=== PATIENT | female | born 1950 | race Caucasian/White ===

== ENCOUNTER → 2019-12-08 09:15 | Outpatient (CLI) | payer MEDICARE, SELFPAY ==
--- NOTE | ~2019-12-08 | MM_ITS ---
EXAMINATION: MM diagnostic shayne LT w marian HISTORY: Follow-up left breast asymmetries TECHNIQUE: Additional 3-D tomosynthesis images of the left breast were performed and synthetic 2-D im ages were generated. CAD analysis was submitted and interpreted. COMPARISON: Comparison to multiple prior studies sequentially, with oldest reviewed study dated 04/05. BREAST PARENCHYMAL COMPOSITION: Breast composed of scattered areas of fibroglandular density FINDINGS: There are no new suspicious masses, calcifications or architectural distortion to suggest m alignancy. Left breast asymmetries and calcifications are stable. IMPRESSION: 1. No mammographic evidence for malignancy in the left breast. 2. Routine yearly screening mammogram and regular clinical breast examination are recommended. BI-RADS Category 2: Benign finding(s). Reviewed, dictated and finalized at location A. IMPRESSION: 1. No mammographic evidence for malignancy in the left breast. 2. Routine yearly screening mammogram and regular clinical breast examination a re recommended. BI-RADS Category 2: Benign finding(s).
== END ==
PROVIDERS: Visit Provider Obstetrics & Gynecology Gynecology
DX: R92.8 Other abnormal and inconclusive findings on diagnostic imaging of breast (principal)
CPT/HCPCS: 77061; 77065; G0279

== ENCOUNTER → 2020-06-17 17:32 | Outpatient (CLI) | payer MEDICARE, SELFPAY ==
--- NOTE | ~2020-06-17 | DEXA_ITS ---
Bone Density Report Name: Jose Bowers Age: 69 Sex: Female Ethnicity: White Date of : 1950 Indication: postmenopausal; screening for osteoporosis; history of glucocorticoids; rheumatoid arthritis; Referring Provider: KARY ZHANG Study: Bone densitometry was performed. Exam Date: June 17, 2020 Accession number: [id number] Bone Density: Region BMD T-score Z-score Classification AP Spine (L1-L4) 1.224 1.6 3.7 Normal Femoral Neck (Left) 0.944 0.9 2.7 Normal Total Hip (Left) 1.157 1.8 3.3 Normal Femoral Neck (Right) 0.819 -0.3 1.5 Normal Total Hip (Right) 1.105 1.3 2.9 Normal Total Hip Mean 1.131 1.6 3.1 Normal World Health Organization criteria for BMD impression classify patients as: Normal (T-score at or above -1.0), Osteopenia (T-score between -1.0 and -2.5), or Osteoporosis (T-score at or below -2.5). 10-year Fracture Risk: FRAX not reported because: All T-scores for Spine Total, Hip Total, Femoral Neck at or above -1.0 Previous Exams: Region Exam Age BMD T-score BMD Change BMD Change Date g/cm2 vs Baseline vs Previous AP Spine(L1-L4) 06/17/2020 69 1.224 1.6 0.023* -0.008 04/16/2017 66 1.233 1.7 0.032* 0.032* 03/26/2014 63 1.201 1.4 Total Hip(Left) 06/17/2020 69 1.157 1.8 -0.072* 0.000 04/16/2017 66 1.157 1.8 -0.073* -0.073* 03/26/2014 63 1.229 2.4 Total Hip(Right) 06/17/2020 69 1.105 1.3 0.010 -0.026 04/16/2017 66 1.131 1.5 0.036* 0.036* 03/26/2014 63 1.095 1.3 *Denotes significance at 95% confidence level, LSC for AP Spine = 0.022 g/cm2, LSC for Total Hip = 0.027 g/cm2 Clinical Information Provided by Patient: Has taken Glucocorticoids Has rheumatoid arthritis Has used the following medications: Vitamin D, Calcium, SYNTHROID, MTV Patient maximum height was 61.0 Menopause Age: 54 No regular weight bearing exercise Drinks caffeinated beverages Onset of menses at age 11 Number of children 1 Impression: The patient has normal bone mass. The patient has risk factors, including: history of glucocorticoid therapy. No significant bone loss was observed. Discussion: BONE DENSITY IS ABOVE THE MINIMUM DESIRABLE LEVEL AT ALL SKELETAL SITES TESTED. This patient?s bone mineral density is above the minimum desirable level (T-score -1.0 or better) at all sites measured.
--- NOTE | ~2020-06-17 | MM_ITS ---
EXAMINATION: MM screening shayne BI w marian HISTORY: Screening mammogram TECHNIQUE: Craniocaudal and mediolateral oblique 3-D tomosynthesis images were obtained and synthetic 2-D images were generated. CAD analysis was submitted and interpreted. COMPARISON: 12/2019 diagnostic left digital mammogram 05/19/2019 screening right mammogram 04/06/2019 diagnostic left mammogram 10/2018, 05/24/2018 diagnostic left digital mammogram and limited left breast ultrasound 04/30/2018, 04/16/2017 bilateral digital screening mammogram examinations BREAST PARENCHYMAL COMPOSITION: There are scattered areas of fibroglandular density. FINDINGS: Scattered bilateral benign calcifications. There is no evidence of suspicious mass, calcifi cation, or architectural distortion to suggest malignancy in either breast. There has been no suspici ous interval change. IMPRESSION: 1. No mammographic evidence of malignancy. 2. Recommend routine screening mammography in one year. BI-RADS Category 2: Benign finding(s). Reviewed, dictated and finalized at location A. 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
== END ==
PROVIDERS: Visit Provider Obstetrics & Gynecology Gynecology
DX: Z12.31 Encounter for screening mammogram for malignant neoplasm of breast (principal); Z78.0 Asymptomatic menopausal state
CPT/HCPCS: 77063; 77067; 77080

== ENCOUNTER 2021-02-27 01:02 | Day surgery (SDC) | payer MEDICARE, SELFPAY ==
[2021-02-24 08:45] VITALS: BMI 44.9
[2021-02-27 06:21] VITALS: BP 151/55; PULSE 53; RESP 16; TEMP 36.2; O2SAT 99
--- NOTE | 2021-02-27 06:46 | WPDANESEPPF ---
Anes - Initial Pre Proc Eval Procedure: Operation Date: 02/27/21 07:30 Proposed Procedures p Hysteroscopy Dilation and Curettage - Raissa Berger MD Date/Time: 02/27/21 06:46 Surgeon: Raissa Berger MD Pre Op Diagnosis: Post Menopausal Bleeding Patient Data Age: 70 Gender: F Height: 1.52 m Weight: 104.33 kg Allergies Allergy/AdvReac Type Severity Reaction Status Date / Time terbinafine [From Lamisil] Allergy Intermediate Hives Verified 02/27/21 06:31 amoxicillin Allergy Mild Rash Verified 02/27/21 06:31 clarithromycin Allergy Mild Rash Verified 02/27/21 06:31 Sulfa (Sulfonamide Allergy Mild Weakness Verified 02/27/21 06:31 Antibiotics) Home Medications Medication Instructions Recorded Confirmed Type acyclovir 400 mg PO BID 02/24/21 02/27/21 History ascorbic acid (vitamin C) [Vitamin 500 mg PO DAILY 02/24/21 02/24/21 History C] atenolol 50 mg PO BID 02/24/21 02/27/21 History atorvastatin 40 mg PO HS 02/24/21 02/27/21 History betamethasone valerate 1 applic TOPICAL DAILY 02/24/21 02/27/21 History calcium 1,200 mg PO DAILY 02/24/21 02/27/21 History cholecalciferol (vitamin D3) 25 mcg PO DAILY 02/24/21 02/27/21 History [Vitamin D3] conjugated estrogens [Premarin] 0.625 mg VAGINAL DAILY 02/24/21 02/27/21 History esomeprazole magnesium [Nexium] 20 mg PO DAILY 02/24/21 02/27/21 History furosemide 20 mg PO DAILY 02/24/21 02/27/21 History golimumab [Simponi ARIA] See Rx Instructions .ROUTE .COMPLEX 02/24/21 02/27/21 History hydrochlorothiazide 25 mg PO DAILY 02/24/21 02/27/21 History levothyroxine [Synthroid] 125 mcg PO DAILY 02/24/21 02/27/21 History losartan 100 mg PO DAILY 02/24/21 02/27/21 History mv,Ca,min-folic acid-vit K1 1 tablet PO DAILY 02/24/21 02/27/21 History [One-A-Day Women's 50 Plus] potassium chloride 20 meq PO DAILY 02/24/21 02/27/21 History prednisone 2.5 mg PO EVERY OTHER DAY 02/24/21 02/27/21 History spironolactone 50 mg PO DAILY 02/24/21 02/27/21 History vitamin [id number]-[id number] acid 1 tablet PO DAILY 02/24/21 02/27/21 History vitamin E 400 unit PO DAILY 02/24/21 02/27/21 History Patient hx anesthesia problems: none Family hx anesthesia problems: none Results Review: All pre-operative results and documents have been reviewed as part of the pre-operative evaluation. [facility] Past Medical History Medical History (Updated 02/27/21 @ 06:47 by Mario Cartagena MD) HTN (hypertension) Morbid obesity MARÍA (obstructive sleep apnea) Social History Social History Smoking packs per day: 1 Smoking cigarettes per day: 20.0 Years smoked: 12 Smoking pack-years: 12.00 Smoking status: Former smoker Tobacco type: cigarettes Smoking end date: 05/06/80 Alcohol intake: never Substance use: never Substance use type: does not use Living arrangements: with family Spiritual care concerns: No Anes - Eval Final PreProcedure Day of Procedure 02/27/21 06:46 Patient weight: morbidly obese Heart: regular rate and rhythm Lungs: clear to auscultation Airway: Mallampati scale class II Neurological: alert and oriented Last oral intake: >/= 8 hours ASA classification: III Emergent: no Anesthetic plan: proceed Anesthesia type and monitoring: general GIVS and standard monitoring Results Review: All pre-operative results and documents have been reviewed as part of the pre-operative evaluation. Informed Consent: The patient's anesthetic plan and its attendant risks and benefits were discussed with the patient/family/POA. Questions were solicited and answers provided to the satisfaction of the patient/family/POA.
[2021-02-27] MEDS: LACTATED RINGERS 1,000 ML 30 ML IV CONT (06:47)
[2021-02-27] MEDS: ACETAMINOPHEN 500 MG TABLET 1000 MG PO (06:49)
--- NOTE | 2021-02-27 07:17 | PM.HPGS ---
History of Present Illness History of Present Illness Consent: Risks, benefits, and alternatives have been discussed and questions answered. Patient agrees to proceed with procedure. Chief complaint: Post Menopausal Bleeding Narrative: Jose Bowers is a 70 year old female with episode of postmenopausal bleeding. Reviewed and recommend work up with hysteroscopy and D&C. Risks of infection, bleeding, perforation, and possible pathology discussed. Agrees to proceed. Review of Systems Review of Systems: not repeated day of surgery; patient states no changes in status Musculoskeletal: Musculoskeletal: Reports back pain and Reports arthralgias [facility] Past Medical History Medical History (Updated 02/27/21 @ 07:22 by Raissa Berger MD) Hearing loss HTN (hypertension) Morbid obesity MARÍA (obstructive sleep apnea) Rheumatoid arthritis Surgical History Surgical History (Updated 02/27/21 @ 07:21 by Raissa Berger MD) S/P arthroscopic knee surgery S/P carpal tunnel release S/P LEEP S/P tonsillectomy S/P tubal ligation Social History Social History Smoking packs per day: 1 Smoking cigarettes per day: 20.0 Years smoked: 12 Smoking pack-years: 12.00 Smoking status: Former smoker Tobacco type: cigarettes Smoking end date: 05/06/80 Alcohol intake: never Substance use: never Substance use type: does not use Living arrangements: with family Spiritual care concerns: No Meds Home Medications and Allergies Home Medications Medication Instructions Recorded Confirmed Type acyclovir 400 mg PO BID 02/24/21 02/27/21 History ascorbic acid (vitamin C) [Vitamin 500 mg PO DAILY 02/24/21 02/24/21 History C] atenolol 50 mg PO BID 02/24/21 02/27/21 History atorvastatin 40 mg PO HS 02/24/21 02/27/21 History betamethasone valerate 1 applic TOPICAL DAILY 02/24/21 02/27/21 History calcium 1,200 mg PO DAILY 02/24/21 02/27/21 History cholecalciferol (vitamin D3) 25 mcg PO DAILY 02/24/21 02/27/21 History [Vitamin D3] conjugated estrogens [Premarin] 0.625 mg VAGINAL DAILY 02/24/21 02/27/21 History esomeprazole magnesium [Nexium] 20 mg PO DAILY 02/24/21 02/27/21 History furosemide 20 mg PO DAILY 02/24/21 02/27/21 History golimumab [Simponi ARIA] See Rx Instructions .ROUTE .COMPLEX 02/24/21 02/27/21 History hydrochlorothiazide 25 mg PO DAILY 02/24/21 02/27/21 History levothyroxine [Synthroid] 125 mcg PO DAILY 02/24/21 02/27/21 History losartan 100 mg PO DAILY 02/24/21 02/27/21 History mv,Ca,min-folic acid-vit K1 1 tablet PO DAILY 02/24/21 02/27/21 History [One-A-Day Women's 50 Plus] potassium chloride 20 meq PO DAILY 02/24/21 02/27/21 History prednisone 2.5 mg PO EVERY OTHER DAY 02/24/21 02/27/21 History spironolactone 50 mg PO DAILY 02/24/21 02/27/21 History vitamin [id number] acid 1 tablet PO DAILY 02/24/21 02/27/21 History vitamin E 400 unit PO DAILY 02/24/21 02/27/21 History Allergies Allergy/AdvReac Type Severity Reaction Status Date / Time terbinafine [From Lamisil] Allergy Intermediate Hives Verified 02/27/21 06:31 amoxicillin Allergy Mild Rash Verified 02/27/21 06:31 clarithromycin Allergy Mild Rash Verified 02/27/21 06:31 Sulfa (Sulfonamide Allergy Mild Weakness Verified 02/27/21 06:31 Antibiotics) Vital Signs Vital Signs - 24 hr 02/27/21 06:21 Temperature 97.2 F L Pulse Rate 53 L Respiratory Rate 16 Blood Pressure 151/55 H Pulse Oximetry 99 Exam Const: General: comfortable and no acute distress Nutritional Appearance: obese Resp: Effort & Inspection: normal respiratory effort GI: Inspection: normal to inspection GI Palp: No abdominal tenderness : External Female Exam: normal external appearance Speculum Exam - Vagina: vaginal bleeding Speculum Exam - Cervix: normal appearance of the cervix Bimanual exam- vagina & uterus: normal bimanual exam Assessment and Plan Assessment and plan (1) Post-menopa
[2021-02-27 07:22] LABS: Anion Gap 11 mmol/L (8-16); Blood Urea Nitrogen 27 mg/dL (7-17); Calcium 9.5 mg/dL (8.4-10.2); Carbon Dioxide 27 mmol/L (22-30); Chloride 103 mmol/L (98-107); Estimated CRCL calculation 61 ml/min; Estimated Glomerular Filt Rate > 60; Glucose 104 mg/dL (65-110); Potassium 3.8 mmol/L (3.4-5.0); Sodium 141 mmol/L (137-145)
--- NOTE | 2021-02-27 07:23 | WPDHPUPDATE1 ---
History and Physical Update Update Date/Time: 02/27/21 07:23 History and Physical has been reviewed, including an updated exam of the patient. There are NO changes in the patient's condition. Risks, benefits, and alternatives have been discussed and questions answered. Patient agrees to proceed with procedure.
[2021-02-27] MEDS: LIDOCAINE HCL 1% PF 30 ML VIAL INFILTRATE (07:41)
[2021-02-27 07:58] VITALS: BP 113/43; PULSE 55; RESP 18; O2SAT 96
--- NOTE | 2021-02-27 08:02 | P.OP_ITS ---
Procedure Note - Detailed Date of Procedure 02/27/21 Pre-op Diagnosis Post Menopausal Bleeding Post-op Diagnosis same Procedure Performed D&C hysteroscopy Surgeon Raissa Berger MD Anesthesia MAC and local Findings External os and internal os are very stenotic; uterus is grossly atrophic with no lesions Description of Procedure The patient is taken to the operating room and placed under anesthesia in the dorsal lithotomy position. She is prepped and draped in the usual sterile fashion. [place] speculum was placed in the vagina and the cervix grasped on the anterior lip with a tenaculum. The cervix was injected with each quadrant with 1% lidocaine. The external os is noted to be flush with no opening. Attempt to sound or use the small dilator was not successful. Os Finders were used and again unable to enter. The 11 blade scalpel was used to angélica-cross the visible os. The os Finders were then used and the cervix serially dilated with difficulty. The internal os was also stenotic. The diagnostic hysteroscope was then placed with no abnormalities noted. The medium sharp curette is used to sharply curette the endometrium until a good uterine cry was noted in all areas. Minimal material was obtained consistent with the atrophic appearance. Instruments are removed. Patient is awakened from anesthesia and taken to recovery in stable condition. Sponge, needle, and instrument counts are correct per the OR staff. Estimated Blood Loss 5 Drains No Packing No Pathology yes (Endometrial curettings) Complications No immediate complications Condition stable Disposition PACU
[2021-02-27 08:15] VITALS: BP 120/49; PULSE 55; RESP 18; O2SAT 98
[2021-02-27 08:40] VITALS: BP 130/55; PULSE 52; RESP 16
[2021-02-27 08:45] VITALS: BP 130/55; PULSE 52; RESP 16
== END 2021-02-27 09:00 | disposition home or self-care (01) ==
PROVIDERS: Anesthesiology; PCP Internal Medicine; Visit Provider Obstetrics & Gynecology Gynecology
PROC: 0U5B8ZZ Destruction of Endometrium, Via Natural or Artificial Opening Endoscopic (ICD-10-PCS; CPT 58563; principal; 2021-02-27 07:30)
DX: N95.0 Postmenopausal bleeding (principal); N85.8 Other specified noninflammatory disorders of uterus; I10 Essential (primary) hypertension; G47.33 Obstructive sleep apnea (adult) (pediatric); E66.01 Morbid (severe) obesity due to excess calories; Z68.41 Body mass index [BMI] 40.0-44.9, adult; Z87.891 Personal history of nicotine dependence
CPT/HCPCS: 58558; 36415; 80048; 88305; A9270; J2704; J3010; J7030; J7120

== ENCOUNTER 2021-03-15 17:41 | Emergency (ER) | payer MEDICARE, SELFPAY ==
--- NOTE | ~2021-03-15 | XR_ITS ---
EXAMINATION: XR knee RT min 4V EXAM DATE: 03/15/2021 18:07 INDICATION: STrain Injury X 3 Wks Ago, pain Lateral Side Of Knee. TECHNIQUE: Right knee frontal, crosstable lateral, orthogonal oblique projections for interpretation . There is no prior study for comparison. FINDINGS: No evidence osteochondral defect or joint body in the right knee joint. Suprapatellar enth esopathy. No joint effusion. There is mild primary osteoarthritis. There are no acute fractures or di slocations identified. There is no subcutaneous gas. The soft tissue is unremarkable. There are n o radiopaque foreign bodies. IMPRESSION: Mild right knee tricompartmental osteoarthritis. Reviewed, dictated and finalized at location A. 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
[2021-03-15 17:43] VITALS: BP 136/54; PULSE 100; RESP 18; TEMP 36.3; O2SAT 100
--- NOTE | 2021-03-15 19:08 | ED.LOWEXIN ---
HPI - Extremity Injury (Lower) General Chief Complaint: Extremity Injury, Lower Stated Complaint: RIGHT KNEE PAIN Time Seen by Provider: 03/15/21 17:57 Source: patient Mode of arrival: ambulatory Limitations: no limitations History of Present Illness HPI Narrative: This is a 70 year old female that presents to the ER for right knee pain present over the last couple of weeks. No known injury or trauma. Reports the pain is worse with weight bearing. She has been taking anti-inflammatories for pain with some relief. Reports the pain is on the lateral and posterior aspect of her knee. Denies decreased ROM or numbness. Related Data Home Medications Medication Instructions Recorded Confirmed acyclovir 400 mg PO BID 02/24/21 02/27/21 ascorbic acid (vitamin C) [Vitamin 500 mg PO DAILY 02/24/21 02/24/21 C] atenolol 50 mg PO BID 02/24/21 02/27/21 atorvastatin 40 mg PO HS 02/24/21 02/27/21 betamethasone valerate 1 applic TOPICAL DAILY 02/24/21 02/27/21 calcium 1,200 mg PO DAILY 02/24/21 02/27/21 cholecalciferol (vitamin D3) 25 mcg PO DAILY 02/24/21 02/27/21 [Vitamin D3] conjugated estrogens [Premarin] 0.625 mg VAGINAL DAILY 02/24/21 02/27/21 esomeprazole magnesium [Nexium] 20 mg PO DAILY 02/24/21 02/27/21 furosemide 20 mg PO DAILY 02/24/21 02/27/21 golimumab [Simponi ARIA] See Rx Instructions .ROUTE .COMPLEX 02/24/21 02/27/21 hydrochlorothiazide 25 mg PO DAILY 02/24/21 02/27/21 levothyroxine [Synthroid] 125 mcg PO DAILY 02/24/21 02/27/21 losartan 100 mg PO DAILY 02/24/21 02/27/21 mv,Ca,min-folic acid-vit K1 1 tablet PO DAILY 02/24/21 02/27/21 [One-A-Day Women's 50 Plus] potassium chloride 20 meq PO DAILY 02/24/21 02/27/21 prednisone 2.5 mg PO EVERY OTHER DAY 02/24/21 02/27/21 spironolactone 50 mg PO DAILY 02/24/21 02/27/21 vitamin J65-[id number] acid 1 tablet PO DAILY 02/24/21 02/27/21 vitamin E 400 unit PO DAILY 02/24/21 02/27/21 Allergies Allergy/AdvReac Type Severity Reaction Status Date / Time terbinafine [From Lamisil] Allergy Intermediate Hives Verified 03/15/21 20:20 amoxicillin Allergy Mild Rash Verified 03/15/21 20:20 clarithromycin Allergy Mild Rash Verified 03/15/21 20:20 Sulfa (Sulfonamide Allergy Mild Weakness Verified 03/15/21 20:20 Antibiotics) fluconazole [From Diflucan] Allergy Rash Verified 03/15/21 20:20 Review of Systems Review of Systems: CONSTITUTIONAL: Denies fever CARDIOVASCULAR: Denies chest pain RESPIRATORY: Denies dyspnea. SKIN: Denies rash MUSCULOSKELETAL: Reports joint pain, and myalgia. NEUROLOGIC: Denies numbness All systems reviewed & are unremarkable except as noted in HPI and below PMFSH Past Medical History Medical History (Updated 03/15/21 @ 20:45 by Emily Myles PA-C) Hearing loss HTN (hypertension) Morbid obesity MARÍA (obstructive sleep apnea) Rheumatoid arthritis Surgical History Surgical History (Updated 02/27/21 @ 07:21 by Raissa Berger MD) S/P arthroscopic knee surgery S/P carpal tunnel release S/P LEEP S/P tonsillectomy S/P tubal ligation Social History Social History Smoking packs per day: 1 Smoking cigarettes per day: 20.0 Years smoked: 12 Smoking pack-years: 12.00 Smoking status: Former smoker Tobacco type: cigarettes Smoking end date: 05/06/80 Alcohol intake: never Substance use: never Substance use type: does not use Spiritual care concerns: No Exam Narrative: GENERAL: Well-appearing, well-nourished, and in no acute distress. HEAD: Normocephalic, atraumatic. EYES: EOMI. CHEST: No respiratory distress. HEART: Regular rate EXTREMITIES: Normal range of motion. 1+ pitting edema to the bilateral lower extremities. No erythema. Normal DP pulses. Normal sensation SKIN: Warm, dry, no rash. NEURO: No focal deficits. Alert and oriented x3. PSYCH: Normal mood and affect Course Vital Signs Vital signs: Vital Signs Temperature 97.4 F L 03/15/21 17:43 Pulse Rate
[2021-03-15 19:10] LABS: Basophils Absolute Auto 0.1 K/mm3 (0.0-0.1); Basophils Percent Auto 0.5 % (0.2-1.2); Eosinophils Absolute Auto 0.2 K/mm3 (0-0.3); Eosinophils Percent Auto 1.6 % (0-4.4); Hematocrit 38.9 % (37.0-47.0); Immature Granulocyte Absolute 0.04 K/mm3 (0.00-0.031); Immature Granulocyte Percent A 0.4 % (0-0.5); Lymphocytes Absolute Auto 2.54 K/mm3 (0.9-3.2); Lymphocytes Percent Auto 25.5 % (18.3-44.2); Mean Corpuscular HGB Conc 33.4 g/dl (32-36); Mean Corpuscular Volume 95.8 fl (80-100); Mean Platelet Volume 10.5 fl (7.4-10.4); Monocytes Absolute Auto 0.8 K/mm3 (0.1-0.6); Monocytes Percent Auto 8.4 % (2.6-8.5); Neutrophils Absolute Auto 6.3 K/mm3 (1.3-6.7); Neutrophils Percent Auto 63.6 % (45.5-73.1); Platelet Count Result 182 k/mm3 (150-375); Red Blood Count 4.06 M/mm3 (4.2-5.4); Red Cell Distribution Width 13.4 % (11.5-14.5)
[2021-03-15 19:24] LABS: Anion Gap 9 mmol/L (8-16); Blood Urea Nitrogen 28 mg/dL (7-17); CRP < 0.5 mg/dL (<1.0); Calcium 9.5 mg/dL (8.4-10.2); Carbon Dioxide 24 mmol/L (22-30); Chloride 105 mmol/L (98-107); Estimated CRCL calculation 50 ml/min; Estimated Glomerular Filt Rate 49; Glucose 112 mg/dL (65-110); Potassium 4.3 mmol/L (3.4-5.0); Sodium 138 mmol/L (137-145)
[2021-03-15 19:31] LABS: D Dimer 0.31 ug/mL (<0.48)
[2021-03-15 19:49] LABS: Erythrocyte Sedimentation Rate 19 mm/hr (0-20)
[2021-03-15 19:53] LABS: Platelet Estimate Adequate (Adequate)
[2021-03-15 20:16] VITALS: BP 150/56; PULSE 52; RESP 18; O2SAT 99
[2021-03-15] MEDS: ACETAMINOPHEN 500 MG TABLET 1000 MG PO (20:20)
[2021-03-15 21:46] VITALS: BP 134/47; PULSE 51; RESP 16; O2SAT 99
== END 2021-03-15 21:48 | disposition home or self-care (01) ==
PROVIDERS: Physician Assistant; Emergency Provider Emergency Medicine; PCP Internal Medicine
DX: M25.561 Pain in right knee (principal); Z87.891 Personal history of nicotine dependence; I10 Essential (primary) hypertension; M06.9 Rheumatoid arthritis, unspecified
CPT/HCPCS: 36415; 73564; 80048; 85025; 85380; 85652; 86140; 99283; A9270

== ENCOUNTER → 2021-08-11 11:13 | Outpatient (CLI) | payer MEDICARE, SELFPAY ==
--- NOTE | ~2021-08-11 | MM_ITS ---
EXAMINATION: MM screening shayne BI w marian HISTORY: Screening TECHNIQUE: Craniocaudal and mediolateral oblique 3-D tomosynthesis images were obtained and synthetic 2-D images were generated. CAD analysis was submitted and interpreted. COMPARISON: Comparison to multiple prior studies sequentially, with oldest reviewed study dated 05/19. BREAST PARENCHYMAL COMPOSITION: There are scattered areas of fibroglandular density. FINDINGS: There is no evidence of suspicious mass, calcification, or architectural distortion to sugg est malignancy in either breast. There has been no suspicious interval change. IMPRESSION: 1. No mammographic evidence of malignancy. 2. Recommend routine screening mammography in one year. BI-RADS Category 1: Negative Reviewed, dictated and finalized at location A.
== END ==
PROVIDERS: PCP Internal Medicine; Visit Provider Obstetrics & Gynecology Gynecology
DX: Z12.31 Encounter for screening mammogram for malignant neoplasm of breast (principal)
CPT/HCPCS: 77063; 77067

== ENCOUNTER → 2021-10-16 10:28 | Outpatient (CLI) | payer MEDICARE, SELFPAY ==
--- NOTE | ~2021-10-16 | XR_ITS ---
XR chest 2V DATE: 10/16/2021 10:59 INDICATION: Hypertension. Rheumatoid arthritis. TECHNIQUE: 2 views COMPARISON: 10/01/2013 PA and lateral chest FINDINGS: Cardiomegaly. Aortic arch calcification. No pulmonary infiltrate or consolidation, pleural effusion or pneumothorax. Pulmonary vascularity is within normal limits. Osteopenia.. IMPRESSION: Cardiomegaly, aortic atherosclerosis Reviewed, dictated and finalized at location A.
== END ==
PROVIDERS: PCP Internal Medicine
DX: R05.9 Cough, unspecified (principal); I51.7 Cardiomegaly; I70.0 Atherosclerosis of aorta
CPT/HCPCS: 71046

== ENCOUNTER → 2022-09-17 12:00 | Outpatient (CLI) | payer MEDICARE, SELFPAY ==
--- NOTE | ~2022-09-17 | MM_ITS ---
EXAMINATION: MM screening [facility] BI w marian HISTORY: Screening mammogram TECHNIQUE: Craniocaudal and mediolateral oblique 3-D tomosynthesis images were obtained and synthetic 2-D images were generated. CAD analysis was submitted and interpreted. COMPARISON: 08/11/2021, 06/17/2020, 12/08/2019 BREAST PARENCHYMAL COMPOSITION: There are scattered areas of fibroglandular density. FINDINGS: No suspicious mass, calcification, or architectural distortion are identified in either jane ast to suggest malignancy. There has been no suspicious interval change. IMPRESSION: 1. No mammographic evidence of malignancy. 2. Recommend routine screening mammography in one year. BI-RADS Category 1: Negative Reviewed, dictated and finalized at location A.
== END ==
PROVIDERS: PCP Internal Medicine; Visit Provider Obstetrics & Gynecology Gynecology
DX: Z12.31 Encounter for screening mammogram for malignant neoplasm of breast (principal)
CPT/HCPCS: 77063; 77067

== ENCOUNTER 2023-11-04 13:28 | Outpatient (CLI) | payer MEDICARE, SELFPAY ==
--- NOTE | ~2023-11-04 | MM_ITS ---
EXAMINATION: MM screening [facility] BI w marian HISTORY: Screening mammogram TECHNIQUE: Craniocaudal and mediolateral oblique 3-D tomosynthesis images were obtained and synthetic 2-D images were generated. CAD analysis was submitted and interpreted. COMPARISON: 09/17/2022, 08/11/2021, 06/17/2020 BREAST PARENCHYMAL COMPOSITION:Not Dense. There are scattered areas of fibroglandular density. FINDINGS: No suspicious mass, calcification, or architectural distortion are identified in either jane ast to suggest malignancy. There has been no suspicious interval change. IMPRESSION: No mammographic evidence of malignancy. Recommend routine screening mammography in one year. BI-RADS Category 1: Negative Reviewed, dictated and finalized at location .
== END 2023-11-04 13:29 ==
LOC: MICIMG 13:29
PROVIDERS: PCP Internal Medicine; Visit Provider Obstetrics & Gynecology Gynecology
DX: Z12.31 Encounter for screening mammogram for malignant neoplasm of breast (principal)
CPT/HCPCS: 77063; 77067

== ENCOUNTER 2024-12-31 12:04 | Outpatient (CLI) | payer MEDICARE, SELFPAY ==
--- NOTE | ~2024-12-31 | MM_ITS ---
EXAMINATION: MM screening [facility] BI w marian HISTORY: Screening TECHNIQUE: Craniocaudal and mediolateral oblique 3-D tomosynthesis images were obtained and synthetic 2-D images were generated. CAD analysis was submitted and interpreted. COMPARISON: Comparison to multiple prior studies sequentially, with oldest reviewed study dated 05/19/2019. BREAST PARENCHYMAL COMPOSITION: There are scattered areas of fibroglandular density. FINDINGS: There is no evidence of suspicious mass, calcification, or architectural distortion to suggest malignancy in either breast. Scattered benign-appearing calcifications are present. IMPRESSION: 1. No mammographic evidence of malignancy. 2. Recommend routine screening mammography in one year. BI-RADS Category 2: Benign finding(s). Reviewed, dictated and finalized at location B.
--- NOTE | ~2024-12-31 | DEXA_ITS ---
Bone Density Report Name: MARCIE VAUGHN Age: 74 Sex: Female Ethnicity: White Date of : 1950 Indication: postmenopausal; screening for osteoporosis; inflammatory bowel disease; rheumatoid arthritis; Referring Provider: KARY ZHANG Study: Bone densitometry was performed. Exam Date: December 31, 2024 Accession number: [id number] Bone Density: Region BMD T-score Z-score Classification AP Spine(L1-L4) 1.209 1.5 3.9 Normal Femoral Neck (Left) 0.836 -0.1 2.0 Normal Total Hip (Left) 1.071 1.1 2.8 Normal Femoral Neck (Right) 0.787 -0.6 1.5 Normal Total Hip (Right) 1.010 0.6 2.3 Normal Total Hip Mean 1.041 0.9 2.6 Normal World Health Organization criteria for BMD impression classify patients as: Normal (T-score at or above -1.0), Osteopenia (T-score between -1.0 and -2.5), or Osteoporosis (T-score at or below -2.5). 10-year Fracture Risk: FRAX not reported because: All T-scores for Spine Total, Hip Total, Femoral Neck at or above -1.0 Previous Exams: -- Region Exam Age BMD T-score BMD Change BMD Change Date g/cm2 vs Baseline vs Previous -- AP Spine (L1-L4) 12/31/2024 74 1.209 1.5 0.7%# -1.2%# 06/17/2020 69 1.224 1.6 2.0%* -0.7% 04/16/2017 66 1.233 1.7 2.7%* 2.7%* 03/26/2014 63 1.201 1.4 Total Hip(Left) 12/31/2024 74 1.071 1.1 -12.9%# -7.4%# 06/17/2020 69 1.157 1.8 -5.9%* 0.0% 04/16/2017 66 1.157 1.8 -5.9%* -5.9%* 03/26/2014 63 1.229 2.4 Total Hip(Right) 12/31/2024 74 1.010 0.6 -7.7%# -8.6%# 06/17/2020 69 1.105 1.3 1.0% -2.3% 04/16/2017 66 1.131 1.5 3.3%* 3.3%* 03/26/2014 63 1.095 1.3 -- *Denotes significance at 95% confidence level, LSC for AP Spine = 0.022 g/cm2, LSC for Total Hip = 0.027 g/cm2 # Denotes dissimilar scan types or analysis methods Clinical Information Provided by Patient: Has rheumatoid arthritis Has used the following medications: HRT (i.e. estrogen/hormone therapy), Vitamin D, Calcium Has the following medical conditions: Inflammatory bowel diseases Patient maximum height was 60 Menopause Age: 54 No regular weight bearing exercise Onset of menses at age 11 Number of children 1 Impression: The patient has normal bone mass. Unable to evaluate interval change due to the use of different scan modes. Discussion: BONE DENSITY IS ABOVE THE MINIMUM DESIRABLE LEVEL AT ALL SKELETAL SITES TESTED. This patient?s bone mineral density is above the minimum desirable level (T-score -1.0 or better) at all sites measured. The patient should follow a healthful lifestyle (good nutrition with adequate calcium and vitamin D, and appropriate weight-bearing exercise). Follow-Up: Consider repeating this study in 5 years or sooner if there is some new clinical indication. Reported by: MEGHA on 12/31/2024 1:09:00 PM. Reviewed, dictated and finalized at location A.
== END 2024-12-31 12:05 | disposition home or self-care (01) ==
PROVIDERS: PCP Internal Medicine; Visit Provider Obstetrics & Gynecology Gynecology
DX: Z12.31 Encounter for screening mammogram for malignant neoplasm of breast (principal); Z78.0 Asymptomatic menopausal state
CPT/HCPCS: 77063; 77067; 77080